=== PATIENT | male | born 1980 | race Native Hawaiian/Other Pacific Islander ===

== ENCOUNTER 2022-02-14 15:46 | Outpatient (CLI) | payer OTHER | END 2022-02-14 19:05 | disposition home or self-care (01) | LOC: EDSTATUS 15:46 → RAD 15:46 | PROVIDERS: ATTEND Nurse Practitioner | DX: M79.641 Pain in right hand (principal) ==

== ENCOUNTER 2022-03-07 14:34 | Outpatient (CLI) | payer OTHER | END 2022-03-07 19:52 | disposition home or self-care (01) | LOC: CT 14:34 | PROVIDERS: ATTEND Nurse Practitioner | DX: R07.89 Other chest pain (principal); E78.49 Other hyperlipidemia ==

== ENCOUNTER 2022-09-14 07:08 | Emergency (ER) | payer OTHER ==
[~2022-09-14] VITALS: Ht 170.2 cm; Wt 74.8 kg
[2022-09-14 07:08] VITALS: TEMP 98
[2022-09-14 08:23] VITALS: BP 106/74
== END 2022-09-14 08:24 | disposition home or self-care (01) ==
LOC: ED 07:08
DX: J40 Bronchitis, not specified as acute or chronic (principal); F17.210 Nicotine dependence, cigarettes, uncomplicated
CPT/HCPCS: 96374; 99284; J0696